=== PATIENT | female | born 1970 | race Caucasian/White ===

== ENCOUNTER 2020-06-06 15:01 | Emergency (ER) | payer MEDICARE ==
[~2020-06-06 15:01] MED LIST: BROVANA15 MCG/2 M NEB; BUDESONIDE0.5 MG/2 M NEB; CLARITIN10 MG PO; EFFEXOR 37.537.5 MG PO; PREDNISONE20 MG PO; VENTOLIN HFA 66.7 GM INH; VIBRAMYCIN100 MG PO; Voltaren Gel 1 % TOP
[2020-06-06 15:34] LABS: HEMOGLOBIN 13.6 gm/dl (12.3-15.3); RED BLOOD COUNT 4.76 M/UL (4.00-5.10); WHITE BLOOD COUNT 7.3 K/UL (4.5-11.0)
[2020-06-06 16:02] LABS: BUN/CREATININE RATIO 9 (0-10)
== END 2020-06-06 19:25 | disposition home or self-care (01) ==
LOC: ER1 15:01
PROVIDERS: Physician Assistant
DX: R07.9 Chest pain, unspecified (principal); E87.6 Hypokalemia; Z20.822 Contact with and (suspected) exposure to COVID-19; F17.290 Nicotine dependence, other tobacco product, uncomplicated; Z90.710 Acquired absence of both cervix and uterus; Z88.2 Allergy status to sulfonamides
CPT/HCPCS: 71045; 80053; 82550; 82553; 83874; 84484; 85025; 85379; 93005; 99284; J7030; Q9967; U0002

== ENCOUNTER → 2020-11-05 | Outpatient (CLI) | payer BC | LOC: MAMO 07:40 | DX: Z12.31 Encounter for screening mammogram for malignant neoplasm of breast (principal) | CPT/HCPCS: 77063; 77067 ==

== ENCOUNTER → 2021-02-19 | Outpatient (CLI) | payer OTHER | LOC: EROP 10:18 | DX: Z20.822 Contact with and (suspected) exposure to COVID-19 (principal) | CPT/HCPCS: U0002 ==

== ENCOUNTER → 2021-03-31 | Outpatient (CLI) | payer BC | LOC: KOH-I 16:19 | DX: R05.9 Cough, unspecified (principal) | CPT/HCPCS: 71046 ==